=== PATIENT | male | born 1975 | race Caucasian/White ===

== ENCOUNTER 2024-08-14 17:08 | Emergency (ER) | payer BC, SELFPAY ==
[2024-08-14 17:13] VITALS: BP 112/63; PULSE 90; RESP 16; TEMP 35.8; O2SAT 98
--- NOTE | 2024-08-14 17:20 | ED_ITS ---
HPI - Male Genitourinary General Chief complaint: Urogenital-Male Stated complaint: Pain in growing Time Seen by Provider: 08/14/24 17:20 Source: patient, RN notes reviewed and old records reviewed Mode of arrival: ambulatory Limitations: no limitations History of Present Illness HPI Narrative: Patient presents with complaints of tender bump to left side of groin. He reports that he noticed this yesterday after doing some yd work. He denies any injury or trauma. He is able to pass gas and has been having regular bowel movements. He voices no other concerns or complaints at this time. He has not been taking any medications for his symptoms. Related Data Home Medications Medication Instructions Recorded Confirmed No Home Medications 04/23/23 08/14/24 Allergies Allergy/AdvReac Type Severity Reaction Status Date / Time lidocaine AdvReac Intermediate Syncope Verified 08/14/24 17:16 Review of Systems Review of Systems: All systems reviewed & are unremarkable except as noted in HPI and below Constitutional: Constitutional: Reports no additional constitutional complaints ENT: Reports system reviewed and no additional complaints, except as documented Cardiovascular: Cardiovascular: Reports no additional cardiovascular complaints Respiratory: Respiratory: Reports no additional respiratory complaints Gastrointestinal: Gastrointestinal: Reports no additional gastrointestinal c omplaints Genitourinary: Genitourinary: Reports no additional male genitourinary complaints and Reports as per HPI [facility] Past Medical History Medical History (Updated 08/14/24 @ 17:34 by Myra Smith APRN) Annual physical exam Attention deficit hyperactivity disorder (ADHD) Encounter for screening for malignant neoplasm of prostate SARAH (obstructive sleep apnea) Screening for cholesterol level Surgical History Surgical History History of testicular surgery Family History Family History Father Hypertension Depression H/O agent Mcnairy exposure Mother Diabetes mellitus Hypertension Grandparent Diabetes mellitus Social History Social History Smoking status: Former smoker Smoking end date: 09/20/01 Alcohol intake: never Substance use: never Lack of Transportation: No Lack of Food: Never True Current Housing: I Have Housing Concerned About Future Housing: No Difficulty Paying Gas/Electric Bills: No Difficulty Paying for Meds: No Currently Unemployed: No Education: Decline to Answer Difficulty w/ Childcare or Family Care: No Living arrangements: with family Occupation/Education: occupation 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 There is no relevant family history pertinent to the patient complaint. Exam Const: General: cooperative, no acute distress, alert and awake Orienta tion/consciousness: oriented to person, oriented to place and oriented to time HENMT: Head: normal to inspection Resp: Effort & Inspection: normal respiratory effort and able to speak in complete sentences Auscultation: clear to auscultation bilaterally, no crackles, no rales, no rhonchi and no wheezes Cardio: Palpation: normal PMI Rate: regular rate Rhythm: regular rhythm Heart sounds: S1 normal heart sound present and S2 normal heart sound present : Male genitals images: 1. Palpable lump, tender to touch, firm Neuro: General: oriented to person, oriented to place and oriented to time Cranial nerves: Yes CN's II-XII intact bilaterally Psych: Appearance: grossly normal Thought process: Normal thought process present Insight: Good insight present (Psych) Judgement: Good judgement present (Psych) Course Course Level of Care: Express Care Visit Vital Signs Vital signs: Vital Signs Temperature 96.4 F L 08/14/24 17:13 Pulse Rate 90 08/14/24 17:13 Respiratory Rate 16 08/14/24 17:13 Blood Pressure 112/63 08/14/24 17:13 Pulse Oximetry 98 08/14/24 17:13 Oxygen Delivery Room Air 08/14/24 17:13 Temperature 96.4 F L 08/14/24 17:13 Pulse Rate 90 08/14/24 17:13 Respiratory Rate 16 08/14/24 17:13 Blood Pressure 112/63 08/14/24 17:13 Pulse Oximetry 98 08/14/24 17:13 Oxygen Delivery Room Air 08/14/24 17:13 Reviewed MDM - Male Genitourinary MDM Narrative Medical decision making narrative: patient with tender palpable raised area, approximately 1.5 cm in diameter. Hernia versus lymphadenopathy. Advised to follow with primary care provider without fail. Emergency department immediately with new or worse symptoms. Strict emergency precautions discussed with both the patient and his Discharge instructions reviewed with patient, as well as provided in writing per nursing staff. The instructions also include specific and strict return/GO TO THE ER as well as f/u information. All questions have been answered, and the patient deny any further questions with discharge and discharge plan. Some parts of this dictation were generated by voice recognition software and may contain typographical and/or grammatical inaccuracies. Differential Diagnosis Differential diagnosis: Likely urinary tract infection, epididymitis and inguinal hernia Medical Records Attestation: I reviewed the patient's medical records. Discharge Plan Discharge Clinical Impression: Groin pain Qualifiers: Laterality: left Qualified Code(s): R10.32 - Left lower quadrant pain Patient Disposition: Home, Self-Care Condition: Stable Instructions: Antibiotic Form, Groin Pain (ED) Additional Instructions: Follow-up with primary care provider. 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
== END 2024-08-14 17:35 | disposition home or self-care (01) ==
PROVIDERS: Emergency Provider Nurse Practitioner Family
DX: R10.32 Left lower quadrant pain (principal); Z87.891 Personal history of nicotine dependence
CPT/HCPCS: 99211; G0463